=== PATIENT | female | born 1975 | race Caucasian/White ===

== ENCOUNTER → 2019-01-18 16:27 | Outpatient (CLI) | payer OTHER, SELFPAY ==
--- NOTE | 2019-01-18 | DI.MG.S_ITS ---
BILATERAL DIGITAL SCREENING MAMMOGRAM 3D/2D WITH CAD: 01/18/2019 CLINICAL: Baseline exam. Routine screening. Family history of breast cancer. No prior exams were available for comparison. The tissue of both breasts is extremely dense, which lowers the sensitivity of mammography. Current study was also evaluated with a Computer Aided Detection (CAD) system. There are grouped calcifications in the right breast superior lateral quadrant anterior depth. There are grouped calcifications in the left breast superior lateral quadrant anterior depth. There is a linear scar marker overlying the left breast. No other significant masses or calcifications are seen in either breast. IMPRESSION: INCOMPLETE: NEEDS ADDITIONAL IMAGING EVALUATION 1) The grouped calcifications in the right breast superior lateral quadrant anterior depth are indeterminate. Magnification views as well as additional views with possible ultrasound are recommended. 2) The grouped calcifications in the left breast superior lateral quadrant anterior depth are indeterminate. Magnification views as well as additional views with possible ultrasound are recommended. This exam was interpreted at Station ID: [id number]. NOTE: For mammograms, a report in lay terms will be sent to the patient. Approximately 15% of breast malignancies will not be visualized mammographically. In the management of a palpable breast mass, a negative mammogram must not discourage biopsy of a clinically suspicious lesion. Electronically Signed By: Rakan Medina M.D. ecl/:01/19/2019 10:07:25 letter sent: Additional Imaging Needed ACR BI-RADS Category 0: Incomplete 3340F
== END ==
PROVIDERS: PCP Family Medicine; Visit Provider Family Medicine
DX: Z12.31 Encounter for screening mammogram for malignant neoplasm of breast (principal)
CPT/HCPCS: 77063; 77067

== ENCOUNTER → 2019-02-07 08:13 | Outpatient (CLI) | payer OTHER, SELFPAY ==
--- NOTE | 2019-02-07 | DI.US.S_ITS ---
ULTRASOUND OF RIGHT BREAST: 02/07/2019 CLINICAL: Additional evaluation requested from prior study. Comparison is made to exams dated: 02/07/2019 mammogram and 01/18/2019 mammogram - [facility]. Color flow and real-time ultrasound of the right breast were performed. Cameron scale images of the real-time examination were reviewed. There is 0.6 cm x 0.7 cm x 1.6 cm wider than tall oval mass with a circumscribed margin in the right breast at 8 o'clock middle depth 4 cm from the nipple. This oval mass is hypoechoic with posterior acoustic enhancement. This correlates with mammography findings. There are related calcifications as seen on mammography. Color flow imaging demonstrates that there is an adjacent vascularity. IMPRESSION: PROBABLY BENIGN The 0.6 cm x 0.7 cm x 1.6 cm wider than tall oval mass in the right breast likely represents a fibroadenoma and is probably benign. A follow-up right mammogram and an ultrasound in 6 months is recommended to demonstrate stability. This exam was interpreted at Station ID: [id number]. Electronically Signed By: Nazario Landry M.D. at/:02/07/2019 09:37:14 letter sent: Followup Recommended Ultrasound BI-RADS: 3 Probably benign
--- NOTE | 2019-02-07 | DI.MG.S_ITS ---
BILATERAL DIGITAL DIAGNOSTIC MAMMOGRAM 3D/2D WITH ADDITIONAL VIEWS: 02/07/2019 CLINICAL: Additional evaluation requested from prior study. Comparison is made to exam dated: 01/18/2019 [facility]. The tissue of both breasts is extremely dense, which lowers the sensitivity of mammography. There are benign calcifications in the left breast. There are 0.6 cm grouped coarse calcifications in the right breast at 8 o'clock anterior depth which demonstrate association with a possible 11 mm mass. No other significant masses, calcifications, or other findings are seen in either breast. IMPRESSION: INCOMPLETE: NEEDS ADDITIONAL IMAGING EVALUATION The 0.6 cm grouped coarse calcifications in the right breast are indeterminate. An ultrasound is recommended which is scheduled to immediately follow this exam. Benign appearing left breast calcifications. This exam was interpreted at Station ID: [id number]. NOTE: For mammograms, a report in lay terms will be sent to the patient. Approximately 15% of breast malignancies will not be visualized mammographically. In the management of a palpable breast mass, a negative mammogram must not discourage biopsy of a clinically suspicious lesion. Electronically Signed By: Nazario Landry M.D. aty/:02/07/2019 09:41:06 ACR BI-RADS Category 0: Incomplete [id number]
== END ==
PROVIDERS: PCP Family Medicine; Visit Provider Family Medicine
DX: R92.8 Other abnormal and inconclusive findings on diagnostic imaging of breast (principal); R92.1 Mammographic calcification found on diagnostic imaging of breast; N63.13 Unspecified lump in the right breast, lower outer quadrant
CPT/HCPCS: 76642; 77066; G0279

== ENCOUNTER → 2019-09-09 12:33 | Outpatient (CLI) | payer OTHER, SELFPAY ==
--- NOTE | 2019-09-09 | DI.MG.S_ITS ---
UNILATERAL RIGHT DIGITAL DIAGNOSTIC MAMMOGRAM 3D/2D SHORT-TERM FOLLOW-UP: 09/09/2019 CLINICAL: Patient returns for a 6 month follow up of the right breast. Comparison is made to exams dated: 02/07/2019 mammogram and 01/18/2019 mammogram - [facility]. The tissue of right breast is extremely dense, which lowers the sensitivity of mammography. Redemonstration of the 0.6 cm grouped coarse calcifications in the right breast at 8 o'clock anterior depth. These are not significantly changed. As before, there is suggestion that they are associated with an equal density mass. No other significant masses or calcifications are seen in the breast. IMPRESSION: INCOMPLETE: NEEDS ADDITIONAL IMAGING EVALUATION The 0.6 cm grouped coarse calcifications in the right breast with possible associated mass remain indeterminate. Further evaluation with sonogram is recommended which is scheduled to immediately follow this examination. This exam was interpreted at Station ID: [id number]. NOTE: For mammograms, a report in lay terms will be sent to the patient. Approximately 15% of breast malignancies will not be visualized mammographically. In the management of a palpable breast mass, a negative mammogram must not discourage biopsy of a clinically suspicious lesion. Electronically Signed By: Nazario Landry M.D. aty/:09/09/2019 13:41:53 ACR BI-RADS Category 0: Incomplete [id number]
--- NOTE | 2019-09-09 | DI.US.S_ITS ---
ULTRASOUND OF RIGHT BREAST: 09/09/2019 CLINICAL: 6 month follow-up. Comparison is made to exams dated: 09/09/2019 mammogram, 02/07/2019 ultrasound, 02/07/2019 mammogram, and 01/18/2019 mammogram - [facility]. Color flow and real-time ultrasound of the right breast were performed. Cameron scale images of the real-time examination were reviewed. There is a 1.1 cm x 0.7 cm x 1.6 cm wider than tall oval mass with a circumscribed margin in the right breast at 8 o'clock middle depth 4 cm from the nipple. This oval mass is hypoechoic with posterior acoustic enhancement. This abnormality is not significantly changed and correlates with mammography findings. There are internal calcifications as before which correlates with findings on mammograms. Color flow imaging demonstrates that there is an adjacent vascularity. 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 A follow-up mammogram and an ultrasound in 6 months is recommended to demonstrate stability. This exam was interpreted at Station ID: [id number]. Electronically Signed By: Nazario Landry M.D. aty/:09/09/2019 17:05:34 letter sent: Followup Recommended Ultrasound BI-RADS: 3 Probably benign
== END ==
PROVIDERS: PCP Family Medicine; Referring Provider Family Medicine; Visit Provider Family Medicine
DX: R92.8 Other abnormal and inconclusive findings on diagnostic imaging of breast (principal); R92.1 Mammographic calcification found on diagnostic imaging of breast; N63.13 Unspecified lump in the right breast, lower outer quadrant
CPT/HCPCS: 76642; 77065; G0279